=== PATIENT | male | born 1985 | race Two or more races ===

== ENCOUNTER 2023-06-17 22:48 | Emergency (ER) | payer OTHER ==
[2023-06-17 23:15] VITALS: BP 118/71; PULSE 70; RESP 18; TEMP 98.7
[2023-06-17] MEDS ORDERED: LORazepam 2 MG/ML INJ IV STA (23:34)
[2023-06-17] MEDS ORDERED: SODIUM CHLORIDE 0.9% 1,000 ML IV ONE (23:34)
[2023-06-18 00:04] LABS: ALT 37 U/L (4-49); AST 30 U/L (17-59); African American GFR (CKD) >90 (>60 ml/min/1.73 sqM); Albumin 4.7 g/dL (3.5-5.0); Alcohol <10 mg/dL; Alkaline Phosphatase 75 U/L (38-126); Anion Gap 14 mmol/L; Blood Urea Nitrogen 12 mg/dL (9-20); Calcium 9.4 mg/dL (8.4-10.2); Carbon Dioxide 21 mmol/L (22-30); Chloride 104 mmol/L (98-107); Glucose 135 mg/dL (74-99); Magnesium 1.9 mg/dL (1.6-2.3); Non-African American GFR(CKD) >90 (>60 ml/min/1.73 sqM); Potassium 4.1 mmol/L (3.5-5.1); Sodium 139 mmol/L (137-145); Total Bilirubin 0.6 mg/dL (0.2-1.3); Total Protein 7.9 g/dL (6.3-8.2)
[2023-06-18 00:19] LABS: Basophils % (A) 0 %; Eosinophils # (A) 0.1 k/uL (0-0.7); Eosinophils % (A) 1 %; HCT 52.9 % (39.0-53.0); HGB 17.6 gm/dL (13.0-17.5); Lymphocytes # (A) 1.5 k/uL (1.0-4.8); Lymphocytes % (A) 10 %; MCH 31.6 pg (25.0-35.0); MCHC 33.3 g/dL (31.0-37.0); MCV 94.9 fL (80.0-100.0); Mean Platelet Volume 6.9; Monocytes # (A) 0.6 k/uL (0-1.0); Monocytes % (A) 4 %; Neutrophils # (A) 12.4 k/uL (1.3-7.7); Neutrophils % (A) 84 %; Platelet Count 302 k/uL (150-450); RBC 5.57 m/uL (4.30-5.90); RDW 11.7 % (11.5-15.5); WBC 14.9 k/uL (3.8-10.6)
== END 2023-06-18 00:50 | disposition left against medical advice (07) ==
LOC: EC 22:48
DX: I63.9 Cerebral infarction, unspecified (principal); Z53.9 Procedure and treatment not carried out, unspecified reason
CPT/HCPCS: 36415; 93005; 80053; 83735; 84484; 85025; G0480; J2060; 80320

== ENCOUNTER 2023-06-18 03:43 | Emergency (ER) | payer OTHER ==
[2023-06-18] MEDS ORDERED: LORazepam 1 MG TAB PO STA (04:45)
[2023-06-18] MEDS ORDERED: LORazepam 2 MG/ML INJ IM STA (06:13)
[2023-06-18 06:14] LABS: Amphetamine Screen,Urine Detected (NotDetected); Barbiturate Screen,Urine Not Detected (NotDetected); Benzodiazepines Screen,Urine Detected (NotDetected); Cocaine Screen,Urine Not Detected (NotDetected); Methadone Screen, Urine Not Detected (NotDetected); Opiate Screen,Urine Not Detected (NotDetected); Oxycodone Screen, Urine Not Detected (NotDetected); Phencyclidine Screen,Urine Not Detected (NotDetected); Tricyclic Antidepressant,Urine Not Detected (NotDetected); Urn Cannabinoid Scrn Detected (NotDetected)
[2023-06-18 06:39] VITALS: RESP 18
--- NOTE | 2023-06-18 07:28 | ED ---
Psych HPI - General Source: patient, EMS Mode of arrival: EMS Limitations: no limitations - History of Present Illness MD Complaint: suicidal ideation -: minutes(s) Associated Psychiatric Symptoms: suicidal ideation History of same: No Quality: constant Improves With: none Worsens With: none Context: significant life stressor Associated Symptoms: denies other symptoms <ParthAndre - Last Filed: 06/18/23 07:29> <Yeison Doyle - Last Filed: 06/19/23 13:15> - General Chief Complaint: Psychiatric Symptoms Stated Complaint: Mental Health - History of Present Illness Initial Comments: This patient is a 38-year-old man brought to have evaluation for suicidal ideation. [place] investigating were told by the patient that he was about to drive his car into the river. Patient stated that he was not feeling like himself because she had taken some ADHD medication. (Andre Alba) - Related Data Allergies Allergy/AdvReac Type Severity Reaction Status Date / Time No Known Allergies Allergy Verified 06/17/23 22:54 Review of Systems ROS Other: All systems not noted in ROS Statement are negative. Constitutional: Denies: fever, chills Respiratory: Denies: cough, dyspnea Cardiovascular: Denies: chest pain, palpitations Gastrointestinal: Denies: abdominal pain, nausea, vomiting Musculoskeletal: Denies: back pain Skin: Denies: rash Neurological: Denies: headache Psychiatric: Reports: anxiety, suicidal thoughts. Denies: auditory hallucinations, homicidal thoughts <ParthAndre - Last Filed: 06/18/23 07:29> ROS Other: All systems not noted in ROS Statement are negative. <Yeison Doyle - Last Filed: 06/19/23 13:15> ROS Statement: Those systems with pertinent positive or pertinent negative responses have been documented in the HPI. Past Medical History Past Medical History: No Reported History History of Any Multi-Drug Resistant Organisms: None Reported Past Surgical History: No Surgical Hx Reported Past Psychological History: No Psychological Hx Reported Smoking Status: Current every day smoker Past Alcohol Use History: None Reported Past Drug Use History: None Reported <Andre Alba - Last Filed: 06/18/23 07:29> General Exam General appearance: alert, anxious Head exam: Present: atraumatic, normocephalic Eye exam: Present: normal appearance. Absent: scleral icterus, conjunctival inj ection Neck exam: Present: normal inspection Respiratory exam: Present: normal lung sounds bilaterally. Absent: respiratory distress, wheezes, rales, rhonchi, stridor Cardiovascular Exam: Present: normal rhythm, tachycardia, normal heart sounds. Absent: systolic murmur, diastolic murmur, rubs, gallop GI/Abdominal exam: Present: soft. Absent: distended, tenderness, guarding, rebound, rigid, mass Extremities exam: Present: normal inspection, normal capillary refill. Absent: pedal edema, calf tenderness Back exam: Present: normal inspection. Absent: CVA tenderness (R), CVA tenderness (L) Neurological exam: Present: alert, normal gait Psychiatric exam: Present: anxious, manic, suicidal ideation. Absent: agitated, flat affect, homicidal ideation Skin exam: Present: warm, dry, intact, normal color. Absent: rash <Andre Alba - Last Filed: 06/18/23 07:29> Course Vital Signs 06/18/23 06/18/23 06/19/23 03:49 06:24 07:02 Temperature 98.6 F 98.2 F Pulse Rate 133 H 110 H 102 H Respiratory 20 18 18 Rate Blood Pressure 134/98 122/88 111/72 O2 Sat by Pulse 96 99 97 Oximetry 06/19/23 08:05 Temperature 98.1 F Pulse Rate Respiratory Rate Blood Pressure O2 Sat by Pulse Oximetry Medical Decision Making - EKG Data -: EKG Interpreted by Mo EKG shows normal: sinus rhythm, axis (Normal), intervals (Normal), QRS complexes (Normal), ST-T waves (Normal) Rate: tachycardia (Rate 118 bpm) Interpretation: LVH (Possible LVH by voltage criteria) <Andre Alba - Last Filed: 06/18/23 07:29> - Lab Data Result diagrams: 06/18/23 17:15 06/18/23 17:15 <Yeison Doyle - Last Filed: 06/19/23 13:15> - Medical Decision Making Patient was observed yesterday throughout the night and today. He was evaluated by the EPS service's morning in the not to be a risk to himself or anyone else he'll be going home with family.Was pt. sent in by a medical professional or in stitution (Dr., PA, MULTI DISCIPLINED LANGUAGE ANALYST, urgent care, hospital, or detention...) When possible be specific @ -No Did you speak to anyone other than the patient for history (EMS, parent, family, police, friend...)? What history was obtained from this source @ -EPS personnel Did you review nursing and triage notes (agree or disagree)? Why? @ -I reviewed and agree with nursing and triage notes Were old charts reviewed (outside hosp., previous admission, EMS record, old EKG, old radiological studies, urgent care reports/EKG's, detention records)? Report findings @ -No old charts were reviewed Differential Diagnosis (chest pain, altered mental status, abdominal pain women, abdominal pain men, vaginal bleeding, weakness, fever, dyspnea, syncope, heada igor, dizziness, GI bleed, back pain, seizure, CVA, palpatations, mental health, musculoskeletal)? @ -Methamphetamine abuse, depression, suicidal ideation EKG interpreted by me (3pts min.). @ -As above EKG interpreted by me heart rate 118. Interval 171 QRS duration 102 QT/QTC 435/508 minimal voltage criteria for LVH nonspecific ST configuration X-rays interpreted by me (1pt min.). @ -None done CT interpreted by me (1pt min.). @ -None done U/S interpreted by me (1pt. min.). @ -None done What testing was considered but not performed or refused? (CT, X-rays, U/S, labs)? Why? @ -None What meds were considered but not given or refused? Why? @ -None Did you discuss the management of the patient with other professionals (professionals i.e. MARCY Huang, MULTI DISCIPLINED LANGUAGE ANALYST, lab, RT, psych nurse, social service agency director, public relations account executive, teacher, assault amphibious vehicle officer, case monitor)? Give summary @ -No Was smoking cessation discussed for >3mins.? @ -No Was critical care preformed (if so, how long)? @ -No Were there social determinants of health that impacted care today? How? (Homelessness, low income, unemployed, alcoholism, drug addiction, transportation, low edu. Level, literacy, decrease access to med. care, [facility], rehab)? @ -Methamphetamine use Was there de-escalation of care discussed even if they declined (Discuss DNR or withdrawal of care, Hospice)? DNR status @ -No What co-morbidities impacted this encounter? (DM, HTN, Smoking, COPD, CAD, Cancer, CVA, ARF, Chemo, Hep., AIDS, mental health diagnosis, sleep apnea, morbid obesity)? @ -None Was patient admitted / discharged? Hospital course, mention meds given and route, prescriptions, significant lab abnormalities, going to OR and other pertinent info. @ -hospital course was discharged home with family after being evaluated by psychiatric service not a risk to himself or others at this time. Undiagnosed new problem with uncertain prognosis? @ -No Drug Therapy requiring intensive monitoring for toxicity (Heparin, Nitro, Insulin, Cardizem)? @ -No Were any procedures done? @ -No Diagnosis/symptom? @ -Methamphetamine abuse, adjustment reaction, Acute, or Chronic, or Acute on Chronic? @ -Acute Uncomplicated (without systemic symptoms) or Complicated (systemic symptoms)? @ -default Side effects of treatment? @ -No Exacerbation, Progression, or Severe Exacerbation? @ -No Poses a threat to life or bodily function? How? (Chest pain, [place], [place], pneumonia, PE, COPD, DKA, ARF, appy, cholecystitis, CVA, Diverticulitis, Homicidal, Suic idal, threat to staff... and all critical care pts) @ -Potential (Yeison Doyle) - Lab Data Lab Results 06/18/23 06/18/23 06/18/23 Range/Units 04:39 04:39 17:15 WBC 12.9 H (3.8-10.6) k/uL RBC 5.04 (4.30-5.90) m/uL Hgb 16.5 (13.0-17.5) gm/dL Hct 48.0 (39.0-53.0) % MCV 95.2 (80.0-100.0) fL MCH 32.7 (25.0-35.0) pg MCHC 34.4 (31.0-37.0) g/dL RDW 11.8 (11.5-15.5) % Plt Count 294 (150-450) k/uL MPV 7.2 Sodium (137-145) mmol/L Potassium (3.5-5.1) mmol/L Chloride (98-107) mmol/L Carbon Dioxide (22-30) mmol/L Anion Gap mmol/L BUN (9-20) mg/dL Creatinine (0.66-1.25) mg/dL Est GFR (CKD-EPI)AfAm (>60 ml/min/1.73 sqM) Est GFR (CKD-EPI)NonAf (>60 ml/min/1.73 sqM) Glucose (74-99) mg/dL Calcium (8.4-10.2) mg/dL Total Bilirubin (0.2-1.3) mg/dL AST (17-59) U/L ALT (4-49) U/L Alkaline Phosphatase (38-126) U/L Total Protein (6.3-8.2) g/dL Albumin (3.5-5.0) g/dL Urine Color Light Yellow Urine Appearance Clear (Clear) Urine pH 5.5 (5.0-8.0) Ur Specific Risco 1.018 (1.001-1.035) Urine Protein Negative (Negative) Urine Glucose (UA) Negative (Negative) Urine Ketones Negative (Negative) Urine Blood Negative (Negative) Urine Nitrite Negative (Negative) Urine Bilirubin Negative (Negative) Urine Urobilinogen <2.0 (<2.0) mg/dL Ur Leukocyte Esterase Negative (Negative) Urine Opiates Screen Not Detected (NotDetected) Ur Oxycodone Screen Not Detected (NotDetected) Urine Methadone Screen Not Detected (NotDetected) Ur Propoxyphene Screen Not Detected (NotDetected) Ur Barbiturates Screen Not Detected (NotDetected) U Tricyclic Antidepress Not Detected (NotDetected) Ur Phencyclidine Scrn Not Detected (NotDetected) Ur Amphetamines Screen Detected H (NotDetected) U Methamphetamines Scrn Detected H (NotDetected) U Benzodiazepines Scrn Detected H (NotDetected) Urine Cocaine Screen Not Detected (NotDetected) U Marijuana (THC) Screen Detected H (NotDetected) Coronavirus (PCR) (Not Detectd) 06/18/23 06/18/23 Range/Units 17:15 17:15 WBC (3.8-10.6) k/uL RBC (4.30-5.90) m/uL Hgb (13.0-17.5) gm/dL Hct (39.0-53.0) % MCV (80.0-100.0) fL MCH (25.0-35.0) pg MCHC (31.0-37.0) g/dL RDW (11.5-15.5) % Plt Count (150-450) k/uL MPV Sodium 138 (137-145) mmol/L Potassium 4.1 (3.5-5.1) mmol/L Chloride 105 (98-107) mmol/L Carbon Dioxide 24 (22-30) mmol/L Anion Gap 9 mmol/L BUN 16 (9-20) mg/dL Creatinine 1.08 (0.66-1.25) mg/dL Est GFR (CKD-EPI)AfAm >90 (>60 ml/min/1.73 sqM) Est GFR (CKD-EPI)NonAf 87 (>60 ml/min/1.73 sqM) Glucose 93 (74-99) mg/dL Calcium 9.0 (8.4-10.2) mg/dL Total Bilirubin 0.7 (0.2-1.3) mg/dL AST 34 (17-59) U/L ALT 33 (4-49) U/L Alkaline Phosphatase 65 (38-126) U/L Total Protein 6.9 (6.3-8.2) g/dL Albumin 4.1 (3.5-5.0) g/dL Urine Color Urine Appearance (Clear) Urine pH (5.0-8.0) Ur Specific Risco (1.001-1.035) Urine Protein (Negative) Urine Glucose (UA) (Negative) Urine Ketones (Negative) Urine Blood (Negative) Urine Nitrite (Negative) Urine Bilirubin (Negative) Urine Urobilinogen (<2.0) mg/dL Ur Leukocyte Esterase (Negative) Urine Opiates Screen (NotDetected) Ur Oxycodone Screen (NotDetected) Urine Methadone Screen (NotDetected) Ur Propoxyphene Screen (NotDetected) Ur Barbiturates Screen (NotDetected) U Tricyclic Antidepress (NotDetected) Ur Phencyclidine Scrn (NotDetected) Ur Amphetamines Screen (NotDetected) U Methamphetamines Scrn (NotDetected) U Benzodiazepines Scrn (NotDetected) Urine Cocaine Screen (NotDetected) U Marijuana (THC) Screen (NotDetected) Coronavirus (PCR) Not Detected (Not Detectd) Disposition <JeremychaunceyAndre - Last Filed: 06/18/23 07:29> Is patient prescribed a controlled substance at d/c from ED?: No Decision Date: 06/19/23 Decision Time: 13:15 <Yeison Doyle - Last Filed: 06/19/23 13:15> Clinical Impression: Adjustment reaction of adult life, Methamphetamine abuse, Depression Disposition: HOME SELF-CARE Condition: Good Instructions (If sedation given, give patient instructions): Methamphetamine Abuse (ED), Mood Disorders (ED), Depression (ED) Additional Instructions: Follow-up as directed with [facility] Referrals: None,Stated [Primary Care Provider] - 1-2 days
[2023-06-18] MEDS ORDERED: NICOTINE 14MG/24HR PATCH TRANSDERM STA (12:17)
[2023-06-18] MEDS ORDERED: ZIPRASIDONE 20 MG VIAL IM STA ×2 (13:32→22:46)
[2023-06-18 18:17] LABS: HGB 16.5 gm/dL (13.0-17.5); MCH 32.7 pg (25.0-35.0); MCHC 34.4 g/dL (31.0-37.0); MCV 95.2 fL (80.0-100.0); Mean Platelet Volume 7.2; Platelet Count 294 k/uL (150-450); RBC 5.04 m/uL (4.30-5.90); RDW 11.8 % (11.5-15.5); WBC 12.9 k/uL (3.8-10.6)
[2023-06-18 18:21] LABS: Chloride 105 mmol/L (98-107)
[2023-06-18 18:23] LABS: ALT 33 U/L (4-49); AST 34 U/L (17-59); African American GFR (CKD) >90 (>60 ml/min/1.73 sqM); Albumin 4.1 g/dL (3.5-5.0); Alkaline Phosphatase 65 U/L (38-126); Anion Gap 9 mmol/L; Blood Urea Nitrogen 16 mg/dL (9-20); Carbon Dioxide 24 mmol/L (22-30); Glucose 93 mg/dL (74-99); Non-African American GFR(CKD) 87 (>60 ml/min/1.73 sqM); Potassium 4.1 mmol/L (3.5-5.1); Sodium 138 mmol/L (137-145); Total Bilirubin 0.7 mg/dL (0.2-1.3); Total Protein 6.9 g/dL (6.3-8.2)
[2023-06-18 19:11] LABS: Appearance,Urine Clear (Clear); Bilirubin,Urine Negative (Negative); Blood,Urine Negative (Negative); Color,Urine Light Yellow; Glucose,Urine (UA) Negative (Negative); Ketones,Urine Negative (Negative); Leukocyte Esterase,Urine Negative (Negative); Nitrite,Urine Negative (Negative); PH, Urine 5.5 (5.0-8.0); Protein,Urine Negative (Negative); Specific Gravity,Urine 1.018 (1.001-1.035); Urobilinogen,Urine <2.0 mg/dL (<2.0)
[2023-06-19] MEDS ORDERED: NICOTINE 14MG/24HR PATCH TRANSDERM SCH (10:00)
[2023-06-19 10:13] VITALS: TEMP 98.1
[2023-06-19 13:24] VITALS: BP 132/80; PULSE 88
== END 2023-06-19 13:27 | disposition home or self-care (01) ==
LOC: EC 03:43
DX: F43.21 Adjustment disorder with depressed mood (principal); F15.10 Other stimulant abuse, uncomplicated; R00.0 Tachycardia, unspecified; F17.200 Nicotine dependence, unspecified, uncomplicated; Z20.822 Contact with and (suspected) exposure to COVID-19
CPT/HCPCS: 99285; 96372 ×3; 82075; 36415; 80053; 85027; 81003; 80306; 87635; S4990; J2060; J3486

== ENCOUNTER 2023-10-09 18:10 | Emergency (ER) | payer OTHER ==
--- NOTE | 2023-10-09 18:16 | ED ---
URI HPI - General Source: patient, RN notes reviewed Mode of arrival: ambulatory Limitations: no limitations <Kristy Carter - Last Filed: 10/09/23 18:16> <Michael Walker - Last Filed: 10/09/23 23:13> - General Stated Complaint: Flu Time Seen by Provider: 10/09/23 18:16 - History of Present Illness Initial Comments: Patient is a 38-year-old male presented to ER with a chief complaint of cough and "not feeling well". Patient states he recently left [place] for rehab and notes multiple residents there have been ill. Denies any known fevers, chest pain, shortness of breath. He does report a cough that has been going on for 3 weeks. (Kristy Carter) 38-year-old male presenting with chief complaint of cough. Patient states that he has a cough for the last 3 weeks. He states that over the last 2 days he has felt more "rundown". He was recently treated at [place] for amphetamine use. He admits to nasal congestion. States that he does have some occasional shortness of breath. No chest pain. States that he has been coughing up more phlegm recently. No abdominal pain, nausea, vomiting, diarrhea. (Michael Walker) - Related Data Previous Rx's Medication Instructions Recorded Azithromycin [Zithromax Z Pack] 1 tab PO DIRECTED #6 tab 10/09/23 Allergies Allergy/AdvReac Type Severity Reaction Status Date / Time No Known Allergies Allergy Verified 10/09/23 18:47 Review of Systems ROS Other: All systems not noted in ROS Statement are negative. <Kristy Carter - Last Filed: 10/09/23 18:16> ROS Other: All systems not noted in ROS Statement are negative. <Michael Walker - Last Filed: 10/09/23 23:13> ROS Statement: Those systems with pertinent positive or pertinent negative responses have been documented in the HPI. Past Medical History Past Medical History: No Reported History History of Any Multi-Drug Resistant Organisms: None Reported Past Surgical History: No Surgical Hx Reported Past Psychological History: No Psychological Hx Reported Smoking Status: Current every day smoker Past Alcohol Use History: None Reported Past Drug Use History: None Reported <Kristy Carter - Last Filed: 10/09/23 18:16> General Exam <Kristy Carter - Last Filed: 10/09/23 18:16> Limitations: no limitations General appearance: alert, in no apparent distress Head exam: Present: atraumatic, normocephalic Eye exam: Present: normal appearance Neck exam: Present: normal inspection Respiratory exam: Present: normal lung sounds bilaterally. Absent: respiratory distress, wheezes, rales, rhonchi, stridor Cardiovascular Exam: Present: normal rhythm, tachycardia, normal heart sounds. Absent: systolic murmur, diastolic murmur, rubs, gallop, clicks Neurological exam: Present: alert, oriented X3 Psychiatric exam: Present: normal affect, normal mood Skin exam: Present: warm, dry <Michael Walker - Last Filed: 10/09/23 23:13> - General Exam Comments Initial Comments: Visual Physical Exam Vital signs reviewed General: Well-appearing, nontoxic, no acute distress. Head: Normocephalic, atraumatic Eyes: PERRLA, EOMI ENT: Airway patent Chest: Nonlabored breathing Skin: No visual rash, normal skin tone Neuro: Alert and oriented 3 Musculoskeletal: No gross abnormalities (Kristy Carter) Course Vital Signs 10/09/23 10/09/23 18:43 22:00 Temperature 99.7 F H 98.8 F Pulse Rate 117 H 110 H Respiratory 20 Rate Blood Pressure 106/66 124/101 O2 Sat by Pulse 96 95 Oximetry Medical Decision Making <Kristy Carter - Last Filed: 10/09/23 18:16> <Michael Walker - Last Filed: 10/09/23 23:13> - Medical Decision Making I performed the quick note portion of this chart. Electronically signed by Kristy Carter PA-C (Kristy Carter) Was pt. sent in by a medical professional or institution (MARCY Huang, WHITE KID BUFFER, urgent care, hospital, or long-term...) When possible be specific @ -No Did you speak to anyone other than the patient for history (EMS, parent, family, police, friend...)? What history was obtained from this source @ -No Did you review nursing and triage notes (agree or disagree)? Why? @ -I reviewed and agree with nursing and triage notes Were old charts reviewed (outside hosp., previous admission, EMS record, old EKG, old radiological studies, urgent care reports/EKG's, long-term records)? Report findings @ -No old charts were reviewed Differential Diagnosis (chest pain, altered mental status, abdominal pain women, abdominal pain men, vaginal bleeding, weakness, fever, dyspnea, syncope, headache, dizziness, GI bleed, back pain, seizure, CVA, palpatations, mental health, musculoskeletal)? @ -Differential includes influenza, RSV, COVID, mononucleosis, pneumonia, bronchitis, meningitis, this is not an all-inclusive list EKG interpreted by me (3pts min.). @ -As above X-rays interpreted by me (1pt min.). @ -Chest x-ray shows no acute cardiopulmonary disease/process. CT interpreted by me (1pt min.). @ -None done U/S interpreted by me (1pt. min.). @ -None done What testing was considered but not performed or refused? (CT, X-rays, U/S, labs)? Why? @ -None What meds were considered but not given or refused? Why? @ -None Did you discuss the management of the patient with other professionals (professionals i.e. , PA, WHITE KID BUFFER, lab, RT, psych nurse, social security benefits interviewer, epilepsy physician, teacher, aerospace engineer officer armament, bottle caser)? Give summary @ -No Was smoking cessation discussed for >3mins.? @ -No Was critical care preformed (if so, how long)? @ -No Were there social determinants of health that impacted care today? How? (Homelessness, low income, unemployed, alcoholism, drug addiction, transportation, low edu. Level, literacy, decrease access to med. care, senior living, rehab)? @ -No Was there de-escalation of care discussed even if they declined (Discuss DNR or withdrawal of care, Hospice)? DNR status @ -No What co-morbidities impacted this encounter? (DM, HTN, Smoking, COPD, CAD, Cancer, CVA, ARF, Chemo, Hep., AIDS, mental health diagnosis, sleep apnea, morbid obesity)? @ -None Was patient admitted / discharged? Hospital course, mention meds given and route, prescriptions, significant lab abnormalities, going to OR and other pertinent info. @ -38-year-old male presenting with chief complaint of cough that has been ongoing for 3 weeks but has worsened over the past few days. Cough is initiated by triage. Patient has no acute process seen on chest x-ray. He is negative for influenza, RSV, and COVID. He is later placed in a room where my history and physical exam were performed. He is given Motrin and Tylenol for fever. I added on heterophile testing which was negative. On reassessment patient is resting comfortably, shows no acute signs of distress. He is educated on today's findings. Treat him for a lower respiratory tract infection with azithromycin Z-Claudio. Discharged home. Follow-up with PCP. Report back to ER with any new or worsening symptoms. Discussed return parameters and answered all questions. Patient conveyed verbal understanding and agreed to the plan. I discussed this case in detail with my attending Dr. Alvarez Undiagnosed new problem with uncertain prognosis? @ -No Drug Therapy requiring intensive monitoring for toxicity (Heparin, Nitro, Insul in, Cardizem)? @ -No Were any procedures done? @ -No Diagnosis/symptom? @ -Lower respiratory tract infection Acute, or Chronic, or Acute on Chronic? @ -Acute Uncomplicated (without systemic symptoms) or Complicated (systemic symptoms)? @ -Uncomplicated Side effects of treatment? @ -No Exacerbation, Progression, or Severe Exacerbation? @ -No Poses a threat to life or bodily function? How? (Chest pain, [place], [place], pneumonia, PE, COPD, DKA, ARF, appy, cholecystitis, CVA, Diverticulitis, Homicidal, Suicidal, threat to staff... and all critical care pts) @ -Low likelihood (Michael Walker) - Lab Data Lab Results 10/09/23 10/09/23 Range/Units 18:47 19:58 Heterophile Antibody Negative (Negative) Influenza Type A (PCR) Not Detected (Not Detectd) Influenza Type B (PCR) Not Detected (Not Detectd) RSV (PCR) Not Detected (Not Detectd) SARS-CoV-2 (PCR) Not Detected (Not Detectd) Disposition <Kristy Carter - Last Filed: 10/09/23 18:16> Is patient prescribed a controlled substance at d/c from ED?: No Time of Disposition: 21:29 <Michael Walker - Last Filed: 10/09/23 23:13> Clinical Impression: Lower resp. tract infection Disposition: HOME SELF-CARE Condition: Good Instructions (If sedation given, give patient instructions): Acute Bronchitis (ED) Additional Instructions: Follow-up with PCP, suggestions provided. Report back to ER with any new or worsening symptoms. Prescriptions: Azithromycin [Zithromax Z Pack] 1 tab PO DIRECTED #6 tab Referrals: None,Stated [Primary Care Provider] - 1-2 days
[2023-10-09 18:58] VITALS: RESP 20
--- NOTE | 2023-10-09 19:03 | XR ---
EXAMINATION TYPE: XR chest 2V DATE OF EXAM: 10/09/2023 6:56 PM CLINICAL INDICATION:Male, 38 years old with history of cough; COMPARISON: None TECHNIQUE: XR chest 2V Frontal and lateral views of the chest. FINDINGS: Lungs/Pleura: There is no evidence of pleural effusion, focal consolidation, or pneumothorax. Pulmonary vascularity: Unremarkable. Heart/mediastinum: Cardiomediastinal silhouette is unremarkable. Musculoskeletal: No acute osseous pathology. IMPRESSION: No acute cardiopulmonary disease/process.
[2023-10-09] MEDS: IBUPROFEN 600 MG TAB PO STA (20:09)
[2023-10-09] MEDS: LORATADINE 10 MG TAB PO STA (20:10)
[2023-10-09] MEDS: ACETAMINOPHEN TAB 325 MG TAB PO STA (20:10)
[2023-10-09 22:48] VITALS: BP 124/101; PULSE 110; TEMP 98.8
== END 2023-10-09 22:10 | disposition home or self-care (01) ==
LOC: EC 18:10
DX: J22 Unspecified acute lower respiratory infection (principal); F17.200 Nicotine dependence, unspecified, uncomplicated; Z20.822 Contact with and (suspected) exposure to COVID-19
CPT/HCPCS: 36415; 71046; 86308; 87636; 99284

== ENCOUNTER 2023-10-10 19:18 | Emergency (ER) | payer OTHER ==
[2023-10-10 20:01] VITALS: BP 116/82; PULSE 110; RESP 18; TEMP 98.2
[2023-10-10 20:35] LABS: ALT 19 U/L (4-49); AST 23 U/L (17-59); African American GFR (CKD) >90 (>60 ml/min/1.73 sqM); Albumin 4.3 g/dL (3.5-5.0); Alkaline Phosphatase 93 U/L (38-126); Amylase 66 U/L (30-110); Anion Gap 11 mmol/L; Blood Urea Nitrogen 12 mg/dL (9-20); Calcium 9.1 mg/dL (8.4-10.2); Carbon Dioxide 20 mmol/L (22-30); Chloride 107 mmol/L (98-107); Glucose 126 mg/dL (74-99); Lipase 53 U/L (23-300); Non-African American GFR(CKD) >90 (>60 ml/min/1.73 sqM); Sodium 138 mmol/L (137-145); Total Bilirubin 0.6 mg/dL (0.2-1.3); Total Protein 7.3 g/dL (6.3-8.2)
[2023-10-10 20:41] LABS: Basophils # (A) 0.1 k/uL (0-0.2); Basophils % (A) 0 %; Eosinophils # (A) 0.1 k/uL (0-0.7); Eosinophils % (A) 0 %; HCT 51.8 % (39.0-53.0); HGB 17.5 gm/dL (13.0-17.5); Lymphocytes # (A) 1.5 k/uL (1.0-4.8); Lymphocytes % (A) 5 %; MCH 31.6 pg (25.0-35.0); MCHC 33.9 g/dL (31.0-37.0); MCV 93.3 fL (80.0-100.0); Mean Platelet Volume 7.5; Monocytes # (A) 1.9 k/uL (0-1.0); Monocytes % (A) 7 %; Neutrophils # (A) 24.1 k/uL (1.3-7.7); Neutrophils % (A) 86 %; Platelet Count 290 k/uL (150-450); RBC 5.55 m/uL (4.30-5.90); RDW 12.8 % (11.5-15.5)
== END 2023-10-10 21:38 | disposition left against medical advice (07) ==
LOC: EC 19:18
DX: R10.9 Unspecified abdominal pain (principal); R11.2 Nausea with vomiting, unspecified; Z53.21 Procedure and treatment not carried out due to patient leaving prior to being seen by health care provider
CPT/HCPCS: 36415; 80053; 82150; 83690; 85025; 99499

== ENCOUNTER 2024-08-24 15:22 | Emergency (ER) | payer OTHER ==
[2024-08-24 16:17] VITALS: RESP 18; TEMP 98.8
--- NOTE | 2024-08-24 16:28 | ED ---
Skin/Abscess/FB HPI - General Chief complaint: Skin/Abscess/Foreign Body Stated complaint: Rash,Poss allergic rxn Time Seen by Provider: 08/24/24 16:20 Source: patient, RN notes reviewed Mode of arrival: ambulatory Limitations: no limitations - History of Present Illness Initial comments: This is a 39-year-old male with no significant medical history presenting to the emergency department for concern of possible allergic reaction. Stated overnight he began to experience urticaria that is pruritic and swelling of his bilateral hands. States that the rash is widespread but most localized to the neck and abdomen. He states that at the initial time of skin manifestations there was minor swelling of his lips and tongue. Currently patient states that the rash is pruritic. He denies shortness of breath, lip or tongue swelling, difficulty swallowing. Patient has taken a Benadryl earlier today with some relief. Patient has recently finished course of Bactrim for staph skin infection. Of note, states that he used a friend's symbicort and albuterol inhaler yesterday and is concerned that these medications may have caused an allergic reaction. He denies use of new soaps, lotions, foods, detergents. - Related Data Previous Rx's Medication Instructions Recorded Azithromycin [Zithromax Z Pack] 1 tab PO DIRECTED #6 tab 10/09/23 predniSONE 50 mg PO DAILY #5 tab 08/24/24 Allergies Allergy/AdvReac Type Severity Reaction Status Date / Time No Known Allergies Allergy Verified 08/24/24 16:17 Review of Systems ROS Statement: Those systems with pertinent positive or pertinent negative responses have been documented in the HPI. ROS Other: All systems not noted in ROS Statement are negative. Past Medical History Past Medical History: No Reported History History of Any Multi-Drug Resistant Organisms: None Reported Past Surgical History: Hernia Repair Past Psychological History: No Psychological Hx Reported Smoking Status: Current every day smoker Past Alcohol Use History: None Reported Past Drug Use History: None Reported General Exam Limitations: no limitations General appearance: alert, in no apparent distress Eye exam: Present: normal appearance, PERRL, EOMI. Absent: scleral icterus, conjunctival injection, periorbital swelling ENT exam: Present: normal exam, mucous membranes moist Neck exam: Present: normal inspection. Absent: tenderness, meningismus, lymphadenopathy Respiratory exam: Present: normal lung sounds bilaterally. Absent: respiratory distress, wheezes, rales, rhonchi, stridor Cardiovascular Exam: Present: regular rate, normal rhythm, normal heart sounds. Absent: systolic murmur, diastolic murmur, rubs, gallop, clicks GI/Abdominal exam: Present: soft, normal bowel sounds. Absent: distended, tenderness, guarding, rebound, rigid Expanded Type of lesion: Present: rash Distribution of rash: generalized Description of rash: Present: other (urticarial rash over the bilateral UE and LE invovling the neck) Course Vital Signs 08/24/24 16:12 Temperature 98.8 F Pulse Rate 120 H Respiratory 18 Rate Blood Pressure 100/62 O2 Sat by Pulse 96 Oximetry Medical Decision Making - Medical Decision Making Was pt. sent in by a medical professional or institution (MARCY Huang, SCHOOL CHILD CARE ATTENDANT, urgent care, hospital, or penitentiary...) When possible be specific @ -No Did you speak to anyone other than the patient for history (EMS, parent, family, police, friend...)? What history was obtained from this source @ -No Did you review nursing and triage notes (agree or disagree)? Why? @ -I reviewed and agree with nursing and triage notes Were old charts reviewed (outside hosp., previous admission, EMS record, old EKG, old radiological studies, urgent care reports/EKG's, penitentiary records)? Report findings @ -No old charts were reviewed Differential Diagnosis (chest pain, altered mental status, abdominal pain women, abdominal pain men, vaginal bleeding, weakness, fever, dyspnea, syncope, headache, dizziness, GI bleed, back pain, seizure, CVA, palpatations, mental health, musculoskeletal)? @ -Angioedema, urticaria, allergic reaction, anaphylaxis, this list is not all inclusive EKG interpreted by me (3pts min.). @ -None X-rays interpreted by me (1pt min.). @ -None done CT interpreted by me (1pt min.). @ -None done U/S interpreted by me (1pt. min.). @ -None done What testing was considered but not performed or refused? (CT, X-rays, U/S, labs)? Why? @ -None What meds were considered but not given or refused? Why? @ -None Did you discuss the management of the patient with other professionals (professionals i.e. MARCY Huang, SCHOOL CHILD CARE ATTENDANT, lab, RT, psych nurse, protective services social worker, die maintenance, teacher, chief data officer, case fitter)? Give summary @ -No Was smoking cessation discussed for >3mins.? @ -No Was critical care preformed (if so, how long)? @ -No Were there social determinants of health that impacted care today? How? (Homelessness, low income, unemployed, alcoholism, drug addiction, transportation, low edu. Level, literacy, decrease access to med. care, alf, rehab)? @ -No Was there de-escalation of care discussed even if they declined (Discuss DNR or withdrawal of care, Hospice)? DNR status @ -No What co-morbidities impacted this encounter? (DM, HTN, Smoking, COPD, CAD, Cancer, CVA, ARF, Chemo, Hep., AIDS, mental health diagnosis, sleep apnea, morbid obesity)? @ -None Was patient admitted / discharged? Hospital course, mention meds given and route, prescriptions, significant lab abnormalities, going to OR and other pertinent info. @ -Discharge. 39-year-old male presenting with concern for poss allergic reaction. On evaluation patient noted to have erythema and edema of bilateral hands with urticaria and patient states this area is pruritic. Additionally, there is urticaria over the neck. he is noted to be tachycardic on arrival ho wever oxygen saturation is 99% on room air. Patient is nontoxic-appearing with no signs of respiratory distress. He will be provided with allergic cocktail including Benadryl, Solu-Medrol, Pepcid. On reevaluation, patient states that pruritus has greatly improved and on my evaluation the erythema has subsided. Patient is advised to discontinue use of Bactrim. Prescription for prednisone sent to the pharmacy and patient is recommended to continue Benadryl and Pepcid as needed for relief. All questions have been answered at bedside answered return parameters have been discussed and he is verbalized understanding. Case discussed with Dr. Meyer Undiagnosed new problem with uncertain prognosis? @ -No Drug Therapy requiring intensive monitoring for toxicity (Heparin, Nitro, Insulin, Cardizem)? @ -No Were any procedures done? @ -No Diagnosis/symptom? @ -urticaria, allergic reaction Acute, or Chronic, or Acute on Chronic? @ -Acute Uncomplicated (without systemic symptoms) or Complicated (systemic symptoms)? @ -Uncomplicated Side effects of treatment? @ -No Exacerbation, Progression, or Severe Exacerbation? @ -No Poses a threat to life or bodily function? How? (Chest pain, [place], [place], pneumonia, PE, COPD, DKA, ARF, appy, cholecystitis, CVA, Diverticulitis, Homicidal, Suicidal, threat to staff... and all critical care pts) @ -No Disposition Clinical Impression: Urticaria, Allergic reaction Disposition: HOME SELF-CARE Condition: Stable Instructions (If sedation given, give patient instructions): Urticaria (ED) Additional Instructions: Please return to the Emergency Department if symptoms worsen or any other concerns. Continue full course of steroids as prescribed in addition to using Benadryl and Pepcid as needed. Is recommended to discontinue use of Bactrim. Prescriptions: predniSONE 50 mg PO DAILY #5 tab Is patient prescribed a controlled substance at d/c from ED?: No Referrals: None,Stated [Primary Care Provider] - 1-2 days Time of Disposition: 17:24
[2024-08-24] MEDS: SODIUM CHLORIDE 0.9% 500 ML 500 ML IV STA (16:35)
[2024-08-24] MEDS: methylPREDNISolone SOD SUCCI 125 MG/2 ML VIAL IV STA (16:37)
[2024-08-24] MEDS: FAMOTIDINE 20 MG/2 ML VIAL IV STA (16:38)
[2024-08-24] MEDS: diphenhydrAMINE 50 MG/ML 1 ML VIAL IVP STA (16:39)
[2024-08-24 17:33] VITALS: BP 125/70; PULSE 94
== END 2024-08-24 17:50 | disposition home or self-care (01) ==
LOC: EC 15:22
DX: T78.40XA Allergy, unspecified, initial encounter (principal); L50.9 Urticaria, unspecified; F17.200 Nicotine dependence, unspecified, uncomplicated
CPT/HCPCS: 99282; 96374; 96375; 96361; J1200; J3490; J2919

== ENCOUNTER 2024-08-25 18:04 | Emergency (ER) | payer OTHER ==
[2024-08-25] MEDS: EPINEPHrine - Anaphylaxis Kit (1 mg/mL) IM STA (18:29)
[2024-08-25] MEDS: diphenhydrAMINE 50 MG CAP PO STA (18:31)
[2024-08-25] MEDS: FAMOTIDINE 20 MG/2 ML VIAL IV STA (18:33)
[2024-08-25] MEDS: methylPREDNISolone SOD SUCCI 125 MG/2 ML VIAL IV STA (18:33)
[2024-08-25] MEDS: SODIUM CHLORIDE 0.9% 1,000 ML IV STA ×2 (18:33→19:30)
--- NOTE | 2024-08-25 18:38 | ED ---
General Adult HPI <Harvey Alvarez - Last Filed: 08/26/24 16:20> - General Source: patient Mode of arrival: ambulatory Limitations: no limitations <Inga Meyer - Last Filed: 08/26/24 17:47> - General Chief complaint: Allergic Reaction Stated complaint: allergic reaction Time Seen by Provider: 08/25/24 18:07 - History of Present Illness Initial comments: Patient is a 39-year-old gentleman with no significant medical history presenting today for lip swelling and rash. Patient states that he uses Symbicort inhaler at 8 PM 2 nights ago, and his symptoms began after this. He initially had itching and a faint rash. Presented to the ER yesterday for rash on his hands and itching. Was given steroids and Benadryl with improvement of symptoms and discharged home. This afternoon patient began noticing worsening of his rash across his back, hands, groin as well as severe lip swelling. Silvino castro denies any difficulty in breathing/shortness of breath chest pain. Also endorses some abdominal discomfort and nausea, no episodes of emesis or diarrhea. States he felt somewhat dizzy before coming in. Has no documented history of anaphylaxis or prior allergies. Also recently completed a course of Bactrim for an ear infection, was on a 10-day course, however was on day 8 yesterday when he was seen here and was directed to stop his Bactrim. (Inga Meyer) - Related Data Previous Rx's Medication Instructions Recorded Azithromycin [Zithromax Z Pack] 1 tab PO DIRECTED #6 tab 10/09/23 predniSONE 50 mg PO DAILY #5 tab 08/24/24 EPINEPHrine (Auto Inject) [Epipen] 0.3 mg IM ONCE PRN #2 each 08/25/24 Famotidine [Pepcid] 20 mg PO BID #28 tablet 08/25/24 hydrOXYzine HCL [Atarax] 25 mg PO TID PRN #15 tab 08/25/24 Allergies Allergy/AdvReac Type Severity Reaction Status Date / Time No Known Allergies Allergy Verified 08/25/24 18:13 Review of Systems ROS Other: All systems not noted in ROS Statement are negative. <Harvey Alvarez - Last Filed: 08/26/24 16:20> ROS Other: All systems not noted in ROS Statement are negative. <Inga Meyer - Last Filed: 08/26/24 17:47> ROS Statement: Those systems with pertinent positive or pertinent negative responses have been documented in the HPI. Past Medical History Past Medical History: No Reported History History of Any Multi-Drug Resistant Organisms: None Reported Past Surgical History: Hernia Repair Past Psychological History: No Psychological Hx Reported Smoking Status: Current every day smoker Past Alcohol Use History: None Reported Past Drug Use History: None Reported <Inga Meyer - Last Filed: 08/26/24 17:47> General Exam General appearance: alert, in no apparent distress Head exam: Present: atraumatic, normocephalic, normal inspection Eye exam: Present: normal appearance, PERRL, EOMI. Absent: scleral icterus, conjunctival injection, periorbital swelling ENT exam: Present: normal exam, mucous membranes moist Neck exam: Present: normal inspection. Absent: tenderness, meningismus, lymphadenopathy Respiratory exam: Present: normal lung sounds bilaterally. Absent: respiratory distress, wheezes, rales, rhonchi, stridor Cardiovascular Exam: Present: regular rate, normal rhythm, normal heart sounds. Absent: systolic murmur, diastolic murmur, rubs, gallop, clicks GI/Abdominal exam: Present: soft, normal bowel sounds. Absent: distended, tenderness, guarding, rebound, rigid Extremities exam: Present: normal inspection, full ROM, normal capillary refill. Absent: tenderness, pedal edema, joint swelling, calf tenderness Back exam: Present: normal inspection Neurological exam: Present: alert, oriented X3, CN II-XII intact Psychiatric exam: Present: normal affect, normal mood Skin exam: Present: warm, dry, intact, normal color. Absent: rash <Harvey Alvarez - Last Filed: 08/26/24 16:20> Limitations: no limitations <Inga Meyer - Last Filed: 08/26/24 17:47> - General Exam Comments Initial Comments: No stridor No tongue edema Improved lip edema (Harvey Alvarez) PE: CONSTITUTIONAL: No apparent distress, well appearing SKIN: Warm, dry, no jaundice, hives present across patient's hands, intermittently across his chest and back, upper thighs EYES: Pupils are equally round, extraocular movements intact without nystagmus, clear conjunctiva, non-icteric sclera HENT: Normocephalic, atraumatic, severe lip swelling, no tongue swelling, no oropharyngeal edema moist mucus membranes, oropharynx clear without exudates NECK: , Full range of motion, normal appearance PULMONARY: Clear to auscultation without wheezes, rhonchi, or rales, normal excursion, no accessory muscle use and no stridor CARDIOVASCULAR: Regular rate, rhythm, normal S1 and S2. No appreciated murmurs, rubs or gallops. Strong radial pulses with intact distal perfusion. No lower extremity edema GASTROINTESTINAL: Soft, active bowel sounds throughout, non-tender, non- distended, no palpable masses, no rebound or guarding. No hepatosplenomegaly MUSCULOSKELETAL: Extremities are atraumatic NEUROLOGIC:_a/o x 3, GCS 15, normal mentation and speech. Moves all extremities x 4 without motor or sensory deficit PSYCHIATRIC:_normal mood and affect, thought process is clear and linear (Inga Meyer) Course <Harvey Alvarez - Last Filed: 08/26/24 16:20> Vital Signs 08/25/24 08/25/24 08/25/24 18:09 18:36 18:46 Temperature 97.9 F Pulse Rate 111 H 107 H Respiratory 18 20 18 Rate Blood Pressure 154/89 127/76 O2 Sat by Pulse 97 95 Oximetry 08/25/24 08/25/24 19:27 21:55 Temperature 98.0 F Pulse Rate 114 H 96 Respiratory 18 18 Rate Blood Pressure 135/70 130/63 O2 Sat by Pulse 93 L 96 Oximetry - Reevaluation(s) Reevaluation #1: 08/26/24 medical record is reviewed (Harvey Alvarez) Reevaluation #2: 08/26/24 symptoms dramatically improved patient has no SOB feels well (Harvey Alvarez) Medical Decision Making <Harvey Alvarez - Last Filed: 08/26/24 16:20> <Inga Meyer - Last Filed: 08/26/24 17:47> - Medical Decision Making 39 male to ED w allergic symptoms improved here in the ED feels well for DC home. (Harvey Alvarez) Was pt. sent in by a medical professional or institution (, PA, MATH INSTRUCTOR, urgent care, hospital, or [facility]...) When possible be specific @ -No Did you speak to anyone other than the patient for history (EMS, parent, family, police, friend...)? What history was obtained from this source @ -No Did you review nursing and triage notes (agree or disagree)? Why? @ -I reviewed nursing and triage notes Were old charts reviewed (outside hosp., previous admission, EMS record, old EKG, old radiological studies, urgent care reports/EKG's, [facility] records)? Report findings @ -Medical records reviewed reviewed patient's visit from yesterday, patient was seen for rash on his hands, given steroids and Benadryl and discharged home after improvement of symptoms Differential Diagnosis (chest pain, altered mental status, abdominal pain women, abdominal pain men, vaginal bleeding, weakness, fever, dyspnea, syncope, headache, dizziness, GI bleed, back pain, seizure, CVA, palpatations, mental health, musculoskeletal)? Differential diagnosis remains broad however top considerations include allergic reaction, anaphylaxis, cellulitis this is not an all-inclusive list EKG interpreted by me (3pts min.). @ -As above X-rays interpreted by me (1pt min.). @ -None done CT interpreted by me (1pt min.). @ -None done U/S interpreted by me (1pt. min.). @ -None done What testing was considered but not performed or refused? (CT, X-rays, U/S, labs)? Why? @ -None What meds were considered but not given or refused? Why? @ -None Did you discuss the management of the patient with other professionals (professionals i.e. , PA, MATH INSTRUCTOR, lab, RT, psych nurse, bilingual social worker, firepot operator and tender, teacher, general service officer, family caseworker)? Give summary @ -No Was smoking cessation discussed for >3mins.? @ -No Was critical care preformed (if so, how long)? @Yes, 35 minutes for anaphylaxis Were there social determinants of health that impacted care today? How? (Homelessness, low income, unemployed, alcoholism, drug addiction, transpo rtation, low edu. Level, literacy, decrease access to med. care, longterm, rehab)? @ -No Was there de-escalation of care discussed even if they declined (Discuss DNR or withdrawal of care, Hospice)? @ -No What co-morbidities impacted this encounter? (DM, HTN, Smoking, COPD, CAD, Cancer, CVA, ARF, Chemo, Hep., AIDS, mental health diagnosis, sleep apnea, morbid obesity)? @ -None Was patient admitted / discharged? Hospital course, mention meds given and route, prescriptions, significant lab abnormalities, going to OR and other pertinent info. @ -Discharged -patient is a previously well 39-year-old gentleman presenting today for rash and lip swelling. Symptoms initially started after Symbicort use. Was seen yesterday and received steroids and Benadryl discharged home after improvement of symptoms. Complete history physical exam performed. On my assessment patient had severe lip swelling, no airway compromise, and diffuse hives. Presentation consistent with anaphylaxis, ordered IM epinephrine, steroids, Benadryl, Pepcid and IV fluids. Patient agreeable plan of care. Patient will be observed for 4 hours post IM epinephrine to ensure no return of symptoms. Patient had a coughing fit and episode of emesis however after this resolved patient endorsed improvement of symptoms. He denied any new difficulty in breathing, there is no uvular swelling or oropharyngeal edema. His hives are much less erythematous though his lips are still swollen. Zofran and additional fluids ordered. Patient will be continued to be monitored for further improvement. Patient signed out to oncoming physician Dr. Alvarez, pending completion of 4-hour observation. And reevaluation. Undiagnosed new problem with uncertain prognosis? @ -No Drug Therapy requiring intensive monitoring for toxicity (Heparin, Nitro, Insulin, Cardizem)? @ -No Were any procedures done? @ -No Diagnosis/symptom? Anaphylaxis Acute, or Chronic, or Acute on Chronic? @Acute Uncomplicated (without systemic symptoms) or Complicated (systemic symptoms)? @Complicated Side effects of treatment? @ -No Exacerbation, Progression, or Severe Exacerbation? @ -No Poses a threat to life or bodily function? How? (Chest pain, [place], [place], pneumonia, PE, COPD, DKA, ARF, appy, cholecystitis, CVA, Diverticulitis, Homicidal, Suicidal, threat to staff... and all critical care pts) Yes, if left untreated could lead to airway compromise, cardiovascular collapse and (Inga Meyer) Disposition Is patient prescribed a controlled substance at d/c from ED?: No Time of Disposition: 21:00 <Harvey Alvarez - Last Filed: 08/26/24 16:20> <Inga Meyer - Last Filed: 08/26/24 17:47> Clinical Impression: Urticaria, Allergic reaction, Angioedema, Anaphylaxis Disposition: HOME SELF-CARE Condition: Serious Instructions (If sedation given, give patient instructions): Anaphylaxis (ED), Angioedema (ED) Prescriptions: hydrOXYzine HCL [Atarax] 25 mg PO TID PRN #15 tab PRN Reason: Itching EPINEPHrine (Auto Inject) [Epipen] 0.3 mg IM ONCE PRN #2 each PRN Reason: Difficulty breathing Famotidine [Pepcid] 20 mg PO BID #28 tablet Referrals: Jona Robbins MD [Primary Care Provider] - 1-2 days
[2024-08-25 18:46] VITALS: RESP 18
[2024-08-25] MEDS: ONDANSETRON 4 MG/2 ML VIAL IVP STA (19:30)
[2024-08-25] MEDS: DEXAMETHASONE SOD PHOSPHATE 10 MG/ML 1 ML VIAL IVP STA (21:21)
[2024-08-25] MEDS: hydrOXYzine HCL 25 MG TAB PO STA (21:37)
[2024-08-25 21:56] VITALS: BP 130/63; PULSE 96; TEMP 98
== END 2024-08-25 22:01 | disposition home or self-care (01) ==
LOC: EC 18:04
DX: T78.3XXA Angioneurotic edema, initial encounter (principal); T88.6XXA Anaphylactic reaction due to adverse effect of correct drug or medicament properly administered, initial encounter; F17.200 Nicotine dependence, unspecified, uncomplicated
CPT/HCPCS: 99284; 96374; 96375; 96361 ×2; 96372; J0171; J1100; J2405; J3490; J2919

== ENCOUNTER 2025-01-10 12:23 | Emergency (ER) | payer OTHER ==
[2025-01-10 12:54] VITALS: RESP 16
--- NOTE | 2025-01-10 13:09 | ED ---
Skin/Abscess/FB HPI - General Chief complaint: Skin/Abscess/Foreign Body Stated complaint: Urogenital Time Seen by Provider: 01/10/25 13:09 Source: patient, RN notes reviewed Mode of arrival: ambulatory Limitations: no limitations - History of Present Illness Initial comments: 39-year-old male presented the ER and reevaluated of eye cyst. Patient states he gets these frequently more often in the summer months. He has followed up with a resolution specialist who stated this was due to sweating more in the summer months. Patient reports he first noted lesion approximately 2 weeks ago and it has progressively grown in size. Yesterday he stated it was "golf ball size and around midnight it "popped". He states he felt a warm fluid running on the inside of his leg and he also tasted it. He denies any external drainage. He does admits to chills last night but denies any known fevers, current chills, body aches. No history of MRSA. Nondiabetic. Patient denies any difficulty with ambulation or pain at this time. No concern of STDs, denies penile discharge or scrotal pain or swelling. No other complaints - Related Data Previous Rx's Medication Instructions Recorded Azithromycin [Zithromax Z Pack] 1 tab PO DIRECTED #6 tab 10/09/23 predniSONE 50 mg PO DAILY #5 tab 08/24/24 EPINEPHrine (Auto Inject) [Epipen] 0.3 mg IM ONCE PRN #2 each 08/25/24 Famotidine [Pepcid] 20 mg PO BID #28 tablet 08/25/24 hydrOXYzine HCL [Atarax] 25 mg PO TID PRN #15 tab 08/25/24 Cephalexin [Keflex] 500 mg PO Q6HR 7 Days #28 cap 01/10/25 Allergies Allergy/AdvReac Type Severity Reaction Status Date / Time No Known Allergies Allergy Verified 08/25/24 18:13 Review of Systems ROS Statement: Those systems with pertinent positive or pertinent negative responses have been documented in the HPI. ROS Other: All systems not noted in ROS Statement are negative. Past Medical History Past Medical History: No Reported History History of Any Multi-Drug Resistant Organisms: None Reported Past Surgical History: Hernia Repair Past Psychological History: No Psychological Hx Reported Smoking Status: Current every day smoker Past Alcohol Use History: None Reported Past Drug Use History: None Reported General Exam Limitations: no limitations General appearance: alert, in no apparent distress Respiratory exam: Present: normal lung sounds bilaterally. Absent: respiratory distress, wheezes, rales, rhonchi, stridor Cardiovascular Exam: Present: regular rate, normal rhythm, normal heart sounds. Absent: systolic murmur, diastolic murmur, rubs, gallop, clicks Extremities exam: Present: normal inspection, full ROM, normal capillary refill (2+ right DP pulse) Neurological exam: Present: alert, oriented X3, CN II-XII intact Skin exam: Present: warm, dry, intact, normal color, other (Just inferior to the right inguinal fold there is a 1 cm hard nodule. There is no overlying or surrounding erythema, wounds, purulent drainage. No fluctuance.) Course Vital Signs 01/10/25 01/10/25 12:52 13:23 Temperature 97.9 F 98.3 F Pulse Rate 74 78 Respiratory 16 16 Rate Blood Pressure 128/87 127/81 O2 Sat by Pulse 98 97 Oximetry Medical Decision Making - Medical Decision Making Was pt. sent in by a medical professional or institution (, PA, [employer], urgent care, hospital, or assisted...) When possible be specific @ -No Did you speak to anyone other than the patient for history (EMS, parent, family, police, friend...)? What history was obtained from this source @ -No Did you review nursing and triage notes (agree or disagree)? Why? @ -I reviewed and agree with nursing and triage notes Were old charts reviewed (outside hosp., previous admission, EMS record, old EKG, old radiological studies, urgent care reports/EKG's, assisted records)? Report findings @ -No old charts were reviewed Differential Diagnosis (chest pain, altered mental status, abdominal pain women, abdominal pain men, vaginal bleeding, weakness, fever, dyspnea, syncope, headache, dizziness, GI bleed, back pain, seizure, CVA, palpatations, mental health, musculoskeletal)? @ -Abscess, cyst, enlarged lymph node... This list is not meant to be all- inclusive EKG interpreted by me (3pts min.). @ -None done X-rays interpreted by me (1pt min.). @ -None done CT interpreted by me (1pt min.). @ -None done U/S interpreted by me (1pt. min.). @ -None done What testing was considered but not performed or refused? (CT, X-rays, U/S, labs)? Why? @ -None What meds were considered but not given or refused? Why? @ -None Did you discuss the management of the patient with other professionals (professionals i.e. , PA, [employer], lab, RT, psych nurse, medical social consultant, nuclear security officer, teacher, parole hearing officer, lead case manager)? Give summary @ -No Was smoking cessation discussed for >3mins.? @ -No Was critical care preformed (if so, how long)? @ -No Were there social determinants of health that impacted care today? How? (Homelessness, low income, unemployed, alcoholism, drug addiction, transportation, low edu. Level, literacy, decrease access to med. care, skilled nursing, rehab)? @ -No Was there de-escalation of care discussed even if they declined (Discuss DNR or withdrawal of care, Hospice)? DNR status @ -No What co-morbidities impacted this encounter? (DM, HTN, Smoking, COPD, CAD, Cancer, CVA, ARF, Chemo, Hep., AIDS, mental health diagnosis, sleep apnea, morbid obesity)? @ -None Was patient admitted / discharged? Hospital course, mention meds given and route, prescriptions, significant lab abnormalities, going to OR and other pertinent info. @ -Discharged. 39-year-old male presented the ER for evaluation of right groin cyst. Vital signs stable. Exam remarkable for a 1 cm nodule noted just inferior to right inguinal fold. Area is nontender without overlying or surrounding erythema, wounds, fluctuance or purulent drainage. Patient denying any urinary complaints or concern of STDs. Patient will be prescribed Keflex for infection prophylaxis. I instructed patient to follow-up closely with dermatology and PCP for reevaluation. Strict return parameters discussed. Patient discharged in stable condition. Patient verbally expressed understanding agree with care plan. Case discussed with ED attending, Dr. Mai. Undiagnosed new problem with uncertain prognosis? @ -No Drug Therapy requiring intensive monitoring for toxicity (Heparin, Nitro, Insulin, Cardizem)? @ -No Were any procedures done? @ -No Diagnosis/symptom? @ -Wound check Acute, or Chronic, or Acute on Chronic? @ -Acute Uncomplicated (without systemic symptoms) or Complicated (systemic symptoms)? @ -Uncomplicated Side effects of treatment? @ -No Exacerbation, Progression, or Severe Exacerbation? @ -No Poses a threat to life or bodily function? How? (Chest pain, [place], [place], pneumonia, PE, COPD, DKA, ARF, appy, cholecystitis, CVA, Diverticulitis, Homicidal, Suicidal, threat to staff... and all critical care pts) @ -Unlikely Disposition Clinical Impression: Visit for wound check Disposition: HOME SELF-CARE Condition: Stable Additional Instructions: Follow-up closely with PCP. Return to the ER for new or worsening concerns Prescriptions: Cephalexin [Keflex] 500 mg PO Q6HR 7 Days #28 cap Is patient prescribed a controlled substance at d/c from ED?: No Referrals: None,Stated [Primary Care Provider] - 1-2 days [facility] [NON-STAFF] - 1-2 days [facility] [NON-STAFF] - 1-2 days Forms: Area PCPs Time of Disposition: 13:17
[2025-01-10 13:27] VITALS: BP 127/81; PULSE 78; TEMP 98.3
== END 2025-01-10 13:27 | disposition home or self-care (01) ==
LOC: EC 12:23
DX: Z48.00 Encounter for change or removal of nonsurgical wound dressing (principal); F17.200 Nicotine dependence, unspecified, uncomplicated
CPT/HCPCS: 99282